=== PATIENT | female | born 1995 | race Caucasian/White ===

== ENCOUNTER 2019-04-21 07:43 | Day surgery (SDC) | payer OTHER ==
[2019-04-21] MEDS ORDERED: CEFAZOLIN 2 GM/50 ML (PMX) 50 ML IVPB (08:30)
[2019-04-21] MEDS ORDERED: SOD CHLORIDE 0.9% 1,000 ML IV (08:30)
[2019-04-21] MEDS ORDERED: CEFAZOLIN 1 GM INJ (09:50)
[2019-04-21] MEDS ORDERED: ROCURONIUM 50 MG INJ (09:50)
[2019-04-21] MEDS ORDERED: LIDOCAINE 2% (SDV) 5 ML INJ (09:50)
[2019-04-21] MEDS ORDERED: PROPOFOL 20 ML (09:50)
[2019-04-21] MEDS ORDERED: DEXAMETHASONE 4 MG/ML 5 ML INJ (09:51)
[2019-04-21] MEDS ORDERED: ONDANSETRON 4 MG INJ (09:51)
[2019-04-21] MEDS ORDERED: SUGAMMADEX SODIUM 200 MG/2 ML VIAL IV (10:18)
[2019-04-21] MEDS ORDERED: HYDROCODONE/APAP (5/325) TAB PO (10:30)
[2019-04-21] MEDS: BUPIVACAINE 0.25% (MPF) 30 ML INJ (10:35)
[2019-04-21] MEDS ORDERED: OXYCODONE/ACETAMINOPHEN (5/325) TAB PO (11:00)
[2019-04-21] MEDS ORDERED: hydrALAzine 20 MG INJ IV (11:00)
[2019-04-21] MEDS ORDERED: EPHEDrine 25 MG/5 ML SYG IV (11:00)
[2019-04-21] MEDS ORDERED: METOCLOPRAMIDE 10 MG INJ IV (11:00)
[2019-04-21] MEDS ORDERED: ONDANSETRON 4 MG INJ IV (11:00)
[2019-04-21] MEDS ORDERED: FENTAnyl 50 MCG/ML VIAL IV ×3 (11:00)
[2019-04-21] MEDS ORDERED: KETOROLAC 30 MG INJ IV (11:00)
[2019-04-21] MEDS ORDERED: LABETALOL HCL 20MG INJ IV (11:00)
[2019-04-21] MEDS ORDERED: DIPHENHYDRAMINE 50 MG INJ IV (11:00)
[2019-04-21] MEDS ORDERED: HYDROmorphONE 1 MG/5 ML IV SYRINGE IV ×3 (11:00)
[2019-04-21] MEDS ORDERED: MIDAZOLAM 1 MG/ML 2 ML INJ IV (11:00)
[2019-04-21] MEDS ORDERED: ALBUTEROL 0.083% (NEB) 2.5 MG/3 ML AMP HHN (11:00)
[2019-04-21] MEDS: MEPERIDINE 25 MG INJ IV (11:01)
[2019-04-21] MEDS: OXYCODONE/ACETAMINOPHEN (5/325) TAB PO (12:15)
== END 2019-04-21 12:53 | disposition home or self-care (01) ==
LOC: SDS 07:43
DX: K80.10 Calculus of gallbladder with chronic cholecystitis without obstruction (principal)
CPT/HCPCS: 47562; 84703; 88304